=== PATIENT | female | born 1965 | race Asian ===

== ENCOUNTER 2020-05-11 15:39 | Observation (INO) | payer OTHER, SELFPAY ==
[2020-05-11] VITALS (12 sets, daily range): BP systolic 110–127; BP diastolic 63–83; PULSE 85–100; RESP 15–23; TEMP 36.4–37; O2SAT 89–100; BMI 27.7
--- NOTE | 2020-05-11 16:52 | PC.NURSE ---
Patient resting in stretcher with significant other at bedside. Patient denies nausea but c/o feeling dehydrated. Skin is pink,warm and dry. C/O epigastric discomfort. Placed patient on equipment monitor phototypesetting. Labs drawn and sent.
[2020-05-11 16:57] LABS: Add Manual Diff / Slide Review NO; Basophils Absolute Auto 0 /uL (0-100); Basophils Percent Auto 0.8 % (0-2); Eosinophils Absolute Auto 200 /uL (0-450); Eosinophils Percent Auto 2.7 % (2-4); Hematocrit 32.9 % (36-46); Hemoglobin 11.1 g/dL (12.0-16.0); Lymphocytes Absolute Auto 1800 /uL (1100-4500); Lymphocytes Percent Auto 29.9 % (25-40); Mean Corpuscular HGB Conc 33.9 % (30-36); Mean Corpuscular Hemoglobin 29.9 PG (26-34); Mean Corpuscular Volume 88.3 fL (80-100); Monocytes Absolute Auto 400 /uL (0-900); Monocytes Percent Auto 6.1 % (3-14); Neutrophils Absolute Auto 3600 /uL (1500-7000); Neutrophils Percent Auto 60.5 % (50-75); Platelet Count 220 X10^3/uL (150-400); Red Blood Cell Count 3.72 X10^6/uL (4.0-5.2); Red Cell Distribution Width 13.9 % (11.6-14.8)
[2020-05-11 17:02] LABS: INR 1.1 (0.9-1.3); Prothrombin Time 12.5 SECONDS (10.1-12.7)
[2020-05-11 17:05] LABS: PTT Partial Thromboplastin Tim 35 SECONDS (26.4-36.2)
--- NOTE | 2020-05-11 17:07 | PC.NURSE ---
Pt showed picture of bowel movements today, some dark red some bright red blood, fills entire bowel. Pt c/o upper gastric pain, worse with rest. C/o increased belching.
[2020-05-11 17:28] LABS: Alanine Aminotransferase 16 IU/L (<35); Albumin 4.1 g/dL (3.5-5.0); Albumin Globulin Ratio 1.6 (1.0-2.8); Alkaline Phosphatase 51 U/L (38-126); Aspartate Aminotransferase 48 IU/L (14-36); BUN Creatinine Ratio 32.4 (6-22); Bilirubin Total 0.6 mg/dL (0.2-1.3); Blood Urea Nitrogen 24 mg/dL (7-17); Calcium 9.2 mg/dL (8.4-10.2); Carbon Dioxide 27 mmol/L (22-32); Chloride 106 mmol/L (98-107); Estimated Glomerular Filt Rate > 60.0 mL/min (>60); Globulin 2.6 g/dL (1.7-4.1); Glucose 97 mg/dL (70-100); HEMOLYSIS 35 (0-50); Potassium 4.1 mmol/L (3.4-5.1); Sodium 139 mmol/L (137-145); Total Protein 6.7 g/dL (6.3-8.2)
--- NOTE | 2020-05-11 18:21 | DI.CT.S_ITS ---
PROCEDURE: CT ABDOMEN PELVIS W CON INDICATIONS: abd pain, gi bleed TECHNIQUE: After the administration of intravenous contrast, 5 mm thick sections acquired from the diaphragm to the symphysis. 5 mm coronal and sagittal reformats were acquired. For radiation dose reduction, the following was used: automated exposure control, adjustment of mA and/or kV according to patient size. COMPARISON: None. FINDINGS: Image quality: Excellent. ABDOMEN: Lung bases: Lung bases are clear. Heart size is normal. Very small hiatal hernia. Solid organs: Liver is normal in size and enhancement. Gallbladder is unremarkable . Biliary system is non dilated. Pancreas enhances normally. Spleen is normal in size and enhancement. No adrenal nodules. Kidneys demonstrate normal size and enhancement, without hydronephrosis. Small right upper pole renal hypodensity likely representing a cyst. Peritoneum and bowel: Bowel loops demonstrate normal wall thickness and caliber. No free fluid or air. Normal appendix. Scattered colonic diverticula without acute inflammation. Nodes and vessels: No retroperitoneal or mesenteric adenopathy by size criteria. Aorta and inferior vena cava are normal in size. Miscellaneous: No ventral hernias. PELVIS: Genitourinary: Bladder wall thickness is normal. Miscellaneous: No inguinal hernias or adenopathy. Bones: No suspicious bony lesions. No vertebral body compression fractures. IMPRESSION: 1. CT abdomen and pelvis without acute abnormalities. 2. Scattered colonic diverticulosis without acute diverticulitis. 3. Normal appendix. Dictated by: Dilshad Barahona M.D. on 05/11/2020 at 18:08 Approved by: Dilshad Barahona M.D. on 05/11/2020 at 18:14
[2020-05-11 18:38] LABS: Lactate (Lactic Acid) 1.1 mmol/L (0.7-2.1)
[2020-05-11] MEDS: PANTOPRAZOLE 40 MG VIAL IV (18:40)
[2020-05-11] MEDS: SODIUM CHLORIDE 0.9% 1,000 ML 1000 ML IV (18:40)
--- NOTE | 2020-05-11 18:54 | ED_ITS ---
HPI - GI Bleed <TIM Bruce - Last Filed: 05/11/20 20:25> General Chief complaint: GI Bleed Stated complaint: states bleeding ulcer Time Seen by Provider: 05/11/20 17:45 Source: patient Mode of arrival: Ambulatory Limitations: no limitations History of Present Illness HPI Narrative: The patient is a 54-year-old female current vapor with history of gastric versus duodenal ulcer, brain aneurysm that was clipped, and H pylori who presents with a chief complaint of acute GI bleeding. She states she had multiple very bloody bowel movements this morning. She does have a history of an aneurysm, she is not exactly sure where. She did take Aleve last night for generalized body aches. She complains of lightheadedness and dizziness. She presents from her primary care provider's office where she was found to have a heart rate in the 130s. She denies any nausea or vomiting. She does have some epigastric pain. She denies any abdominal surgical history or any abdominal history other than her ulcer and H pylori. She states that she has had jerman bloody bowel movements about 8 times today. Related Data Allergies Allergy/AdvReac Type Severity Reaction Status Date / Time No Known Drug Allergies Allergy Verified 05/11/20 15:56 Review of Systems <TIM Bruce - Last Filed: 05/11/20 20:25> Review of Systems Narrative: GENERAL: Denies chills, fatigue, malaise, fever, sweats. HEENT: Denies sinus pain, ear pain, sore throat, difficulty swallowing, dizziness. RESPIRATORY: Denies dyspnea, cough, wheezing, hemoptysis, sputum. CARDIOVASCULAR: Denies chest pain, palpitations, orthopnea, edema, GASTROINTESTINAL: See HPI : Denies dysuria, frequency, incontinence, hematuria, urinary retention. MUSCULOSKELETAL: denies weakness, joint pain, or bony pain SKIN: Denies rash, skin lesions, or other NEUROLOGIC: Denies weakness, headache, numbness, change in speech, confusion, seizures, incoordination. PSYCHIATRIC: No concerning psychosocial issues. 12 point review of systems is negative except for those stated above Patient History <TIM Bruce - Last Filed: 05/11/20 20:25> Surgical History Status post delivery Status post delivery Status post delivery Status post delivery Family History Child Age: 33 High cholesterol Father Hypertension Stroke Grandfather Hypertension High cholesterol Stroke Grandmother Hypertension Stroke Mother Hypertension High cholesterol Social History household members: significant other Smoking Status: Current every day smoker alcohol intake: never tobacco type: vaping Substance Use Type: does not use Exam <JAX Bruce-BC - Last Filed: 05/11/20 20:25> Narrative Exam Narrative: GENERAL: This is a well-nourished, well-developed patient, in appears fatigued HEAD: Atraumatic. Normocephalic. No temporal or scalp tenderness. EYES: Pupils equal round and reactive. Extraocular motions intact. No scleral icterus. No injection or drainage. Pale conjunctiva noted. ENT: Nose without bleeding, purulent drainage or septal hematoma. Throat without erythema, tonsillar hypertrophy or exudate. Uvula midline. Airway patent. Dry mucous membranes NECK: Trachea midline. No JVD or lymphadenopathy. Supple, nontender, no meningeal signs. CARDIOVASCULAR: Regular rate and rhythm RESPIRATORY: Clear to auscultation. Breath sounds equal bilaterally. No wheezes, rales, or rhonchi. No cough. No increased respiratory effort. No accessory muscle use. GASTROINTESTINAL: Abdomen soft, non-tender, nondistended. No hepato- splenomegaly, or palpable masses. No guarding. Active bowel sounds all 4 quadr ants. EXTREMITIES: No clubbing, cyanosis, or edema. No joint tenderness, effusion, or edema noted. BACK: Nontender without deformity or crepitance. No flank tenderness. NEURO: AOx3. SKIN: No rash or erythema on visible skin. Initial Vital Signs Initial Vital Signs: Vital Signs Temperature 98.6 F 05/11/20 15:57 Pulse Rate 100 H 05/11/20 15:57 Respiratory Rate 18 05/11/20 15:57 Blood Pressure 123/83 05/11/20 15:57 Pulse Oximetry 99 05/11/20 15:57 <Americo Dyer DO - Last Filed: 05/12/20 03:44> Initial Vital Signs Initial Vital Signs: Vital Signs Temperature 98.6 F 05/11/20 15:57 Pulse Rate 100 H 05/11/20 15:57 Respiratory Rate 18 05/11/20 15:57 Blood Pressure 123/83 05/11/20 15:57 Pulse Oximetry 99 05/11/20 15:57 Scores <TIM Bruce - Last Filed: 05/11/20 20:25> GCS [place] coma scale eye opening: Spontaneous Jessica coma scale verbal response: Orientated Jessica coma scale motor response: Obey commands [place] coma scale total score: 15 Course <TIM Bruce - Last Filed: 05/11/20 20:25> Orders Ordered: ED Orders 05/11/20 18:43 COVID19 -ED/INPAT/OR/L&D Stat Lactated Ringer's (Lactated Ringers) 1,000 mls @ 100 mls/hr IV CONT [facility] Last Admin: 05/12/20 00:33 Dose: 100 mls/hr Documented by: MELINDA Magnesium Citrate (Magnesium Citrate) 150 ml PO 2200 [facility] Last Admin: 05/11/20 21:52 Dose: 150 ml Documented by: AISHAI Magnesium Citrate (Magnesium Citrate) 150 ml PO NOW ONE Stop: 05/12/20 05:01 Naloxone HCl (Narcan) 0.2 mg IV Q2MIN PRN PRN Reason: Opiate Reversal Ondansetron HCl (Zofran) 4 mg IV Q8HR PRN PRN Reason: Nausea And Vomiting Pantoprazole Sodium (Protonix) 40 mg IV BID [facility] Sodium Biphosphate/Sodium Phosphate (Fleet Enema) 1 each CO 0600 [facility] Stop: 05/12/20 08:00 Discontinued Medications Sodium Chloride (Normal Saline 0.9%) 1,000 mls @ 1,000 mls/hr IV BOLUS ONE Stop: 05/11/20 19:23 Last Infusion: 05/11/20 20:06 Dose: 0 mls/hr Documented by: Admin: 05/11/20 18:40 Dose: 1,000 mls/hr Documented by: FARHAT Sodium Chloride (Normal Saline 0.9%) 1,000 mls @ 150 mls/hr IV CONT [facility] Last Admin: 05/11/20 20:38 Dose: Not Given Documented by: SHERRIE Sodium Chloride (Normal Saline 0.9%) 1,000 mls @ 150 mls/hr IV CONT [facility] Stop: 05/11/20 23:33 Last Admin: 05/11/20 21:51 Dose: 150 mls/hr Documented by: IFTIKHAR Lorazepam (Ativan) 1 mg IV NOW ONE Stop: 05/11/20 18:27 Last Admin: 05/11/20 20:05 Dose: Not Given Documented by: SHERRIE Naloxone HCl (Narcan) 0.2 mg IV Q2MIN PRN PRN Reason: Opiate Reversal Pantoprazole Sodium (Protonix) 40 mg IV NOW ONE Stop: 05/11/20 18:22 Last Admin: 05/11/20 18:40 Dose: 40 mg Documented by: FARHAT Vital Signs Vital signs: Vital Signs - 8 hr 05/11/20 20:00 05/11/20 20:01 Pulse Rate 89 94 H Respiratory Rate 18 23 Blood Pressure 118/73 Pulse Oximetry 100 100 <Americo Dyer DO - Last Filed: 05/12/20 03:44> Orders Ordered: ED Orders 05/11/20 18:43 COVID19 -ED/INPAT/OR/L&D Stat Lactated Ringer's (Lactated Ringers) 1,000 mls @ 100 mls/hr IV CONT [facility] Last Admin: 05/12/20 00:33 Dose: 100 mls/hr Documented by: MELINDA Magnesium Citrate (Magnesium Citrate) 150 ml PO 2200 [facility] Last Admin: 05/11/20 21:52 Dose: 150 ml Documented by: IFTIKHAR Magnesium Citrate (Magnesium Citrate) 150 ml PO NOW ONE Stop: 05/12/20 05:01 Naloxone HCl (Narcan) 0.2 mg IV Q2MIN PRN PRN Reason: Opiate Reversal Ondansetron HCl (Zofran) 4 mg IV Q8HR PRN PRN Reason: Nausea And Vomiting Pantoprazole Sodium (Protonix) 40 mg IV BID [facility] Sodium Biphosphate/Sodium Phosphate (Fleet Enema) 1 each CO 0600 [facility] Stop: 05/12/20 08:00 Discontinued Medications Sodium Chloride (Normal Saline 0.9%) 1,000 mls @ 1,000 mls/hr IV BOLUS ONE Stop: 05/11/20 19:23 Last Infusion: 05/11/20 20:06 Dose: 0 mls/hr Documented by: Admin: 05/11/20 18:40 Dose: 1,000 mls/hr Documented by: FARHAT Sodium Chloride (Normal Saline 0.9%) 1,000 mls @ 150 mls/hr IV CONT [facility] Last Admin: 05/11/20 20:38 Dose: Not Given Documented by: SHERRIE Sodium Chloride (Normal Saline 0.9%) 1,000 mls @ 150 mls/hr IV CONT [facility] Stop: 05/11/20 23:33 Last Admin: 05/11/20 21:51 Dose: 150 mls/hr Documented by: IFTIKHAR Lorazepam (Ativan) 1 mg IV NOW ONE Stop: 05/11/20 18:27 Last Admin: 05/11/20 20:05 Dose: Not Given Documented by: SHERRIE Naloxone HCl (Narcan) 0.2 mg IV Q2MIN PRN PRN Reason: Opiate Reversal Pantoprazole Sodium (Protonix) 40 mg IV NOW ONE Stop: 05/11/20 18:22 Last Admin: 05/11/20 18:40 Dose: 40 mg Documented by: FARHAT Vital Signs Vital signs: Vital Signs - 8 hr 05/11/20 20:00 05/11/20 20:01 Pulse Rate 89 94 H Respiratory Rate 18 23 Blood Pressure 118/73 Pulse Oximetry 100 100 MDM - GI Bleed <JAX Bruce- - Last Filed: 05/11/20 20:25> Lab Data Attestation: I reviewed the patient's lab results. Result diagrams: 05/11/20 16:40 05/11/20 16:40 Labs: Lab Results 05/11/20 05/11/20 05/11/20 Range/Units 16:40 16:40 16:40 WBC 6.0 (4.5-11.0) X10^3/uL RBC 3.72 L (4.0-5.2) X10^6/uL Hgb 11.1 L (12.0-16.0) g/dL Hct 32.9 L (36-46) % MCV 88.3 (80-100) fL MCH 29.9 (26-34) PG MCHC 33.9 (30-36) % RDW 13.9 (11.6-14.8) % Plt Count 220 (150-400) X10^3/uL Neut % (Auto) 60.5 (50-75) % Lymph % (Auto) 29.9 (25-40) % Rolette % (Auto) 6.1 (3-14) % Eos % (Auto) 2.7 (2-4) % Baso % (Auto) 0.8 (0-2) % Neut # (Auto) 3600 (5991-6210) /uL Lymph # (Auto) 1800 (5731-7400) /uL Rolette # (Auto) 400 (0-900) /uL Eos # (Auto) 200 (0-450) /uL Baso # (Auto) 0 (0-100) /uL PT 12.5 (10.1-12.7) SECONDS INR 1.1 (0.9-1.3) APTT 35 (26.4-36.2) SECONDS Sodium 139 (137-145) mmol/L Potassium 4.1 (3.4-5.1) mmol/L Chloride 106 (98-107) mmol/L Carbon Dioxide 27 (22-32) mmol/L BUN 24 H (7-17) mg/dL Creatinine 0.74 (0.52-1.04) mg/dL Estimated GFR > 60.0 (>60) mL/min BUN/Creatinine Ratio 32.4 H (6-22) Glucose 97 (70-100) mg/dL Lactate (0.7-2.1) mmol/L Calcium 9.2 (8.4-10.2) mg/dL Total Bilirubin 0.6 (0.2-1.3) mg/dL AST 48 H (14-36) IU/L ALT 16 (<35) IU/L Alkaline Phosphatase 51 (38-126) U/L Total Protein 6.7 (6.3-8.2) g/dL Albumin 4.1 (3.5-5.0) g/dL Globulin 2.6 (1.7-4.1) g/dL Albumin/Globulin Ratio 1.6 (1.0-2.8) Stl C. cayetanensis PCR (Not Detect) Stool Rotavirus (PCR) (Not Detect) Stool Adenovirus (PCR) (Not Detect) Stool Astrovirus (PCR) (Not Detect) Stool Cryptosporidium PCR (Not Detect) Stl E.coli Shiga Tox PCR (Not Detect) St Sh/Enteroin Ecoli PCR (Not Detect) Stool E coli O157 PCR (Not Detect) Stl Enterotoxigenic E PCR (Not Detect) Stool EPEC (PCR) (Not Detect) Stl E. histolytica PCR (Not Detect) Stool Giardia Lamblia PCR (Not Detect) Stool Sapovirus (PCR) (Not Detect) Stl P. shigelloides PCR (Not Detect) St Y.enterocolitica PCR (Not Detect) Stool Vibrio (PCR) (Not Detect) Stl Vibrio cholerae PCR (Not Detect) Stl Enteroaggr Ecoli PCR (Not Detect) Stl Norovirus GI/GII PCR (Not Detect) Campylobacter (PCR) (Not Detect) C. difficile Tox (PCR) (Not Detect) COVID-19 PCR (Negative) Salmonella (PCR) (Not Detect) Blood Type Antibody Screen 05/11/20 05/11/20 05/11/20 Range/Units 16:51 17:30 18:20 WBC (4.5-11.0) X10^3/uL RBC (4.0-5.2) X10^6/uL Hgb (12.0-16.0) g/dL Hct (36-46) % MCV (80-100) fL MCH (26-34) PG MCHC (30-36) % RDW (11.6-14.8) % Plt Count (150-400) X10^3/uL Neut % (Auto) (50-75) % Lymph % (Auto) (25-40) % Rolette % (Auto) (3-14) % Eos % (Auto) (2-4) % Baso % (Auto) (0-2) % Neut # (Auto) (2548-3076) /uL Lymph # (Auto) (8590-6205) /uL Rolette # (Auto) (0-900) /uL Eos # (Auto) (0-450) /uL Baso # (Auto) (0-100) /uL PT (10.1-12.7) SECONDS INR (0.9-1.3) APTT (26.4-36.2) SECONDS Sodium (137-145) mmol/L Potassium (3.4-5.1) mmol/L Chloride (98-107) mmol/L Carbon Dioxide (22-32) mmol/L BUN (7-17) mg/dL Creatinine (0.52-1.04) mg/dL Estimated GFR (>60) mL/min BUN/Creatinine Ratio (6-22) Glucose (70-100) mg/dL Lactate 1.1 (0.7-2.1) mmol/L Calcium (8.4-10.2) mg/dL Total Bilirubin (0.2-1.3) mg/dL AST (14-36) IU/L ALT (<35) IU/L Alkaline Phosphatase (38-126) U/L Total Protein (6.3-8.2) g/dL Albumin (3.5-5.0) g/dL Globulin (1.7-4.1) g/dL Albumin/Globulin Ratio (1.0-2.8) Stl C. cayetanensis PCR Not detected (Not Detect) Stool Rotavirus (PCR) Not detected (Not Detect) Stool Adenovirus (PCR) Not detected (Not Detect) Stool Astrovirus (PCR) Not detected (Not Detect) Stool Cryptosporidium PCR Not detected (Not Detect) Stl E.coli Shiga Tox PCR Not detected (Not Detect) St Sh/Enteroin Ecoli PCR Not detected (Not Detect) Stool E coli O157 PCR Not detected (Not Detect) Stl Enterotoxigenic E PCR Not detected (Not Detect) Stool EPEC (PCR) Not detected (Not Detect) Stl E. histolytica PCR Not detected (Not Detect) Stool Giardia Lamblia PCR Not detected (Not Detect) Stool Sapovirus (PCR) Not detected (Not Detect) Stl P. shigelloides PCR Not detected (Not Detect) St Y.enterocolitica PCR Not detected (Not Detect) Stool Vibrio (PCR) Not detected (Not Detect) Stl Vibrio cholerae PCR Not detected (Not Detect) Stl Enteroaggr Ecoli PCR Not detected (Not Detect) Stl Norovirus GI/GII PCR Not detected (Not Detect) Campylobacter (PCR) Not detected (Not Detect) C. difficile Tox (PCR) Not detected (Not Detect) COVID-19 PCR (Negative) Salmonella (PCR) Not detected (Not Detect) Blood Type O Positive Antibody Screen Negative 05/11/20 Range/Units 18:43 WBC (4.5-11.0) X10^3/uL RBC (4.0-5.2) X10^6/uL Hgb (12.0-16.0) g/dL Hct (36-46) % MCV (80-100) fL MCH (26-34) PG MCHC (30-36) % RDW (11.6-14.8) % Plt Count (150-400) X10^3/uL Neut % (Auto) (50-75) % Lymph % (Auto) (25-40) % Rolette % (Auto) (3-14) % Eos % (Auto) (2-4) % Baso % (Auto) (0-2) % Neut # (Auto) (3144-7716) /uL Lymph # (Auto) (0212-8315) /uL Rolette # (Auto) (0-900) /uL Eos # (Auto) (0-450) /uL Baso # (Auto) (0-100) /uL PT (10.1-12.7) SECONDS INR (0.9-1.3) APTT (26.4-36.2) SECONDS Sodium (137-145) mmol/L Potassium (3.4-5.1) mmol/L Chloride (98-107) mmol/L Carbon Dioxide (22-32) mmol/L BUN (7-17) mg/dL Creatinine (0.52-1.04) mg/dL Estimated GFR (>60) mL/min BUN/Creatinine Ratio (6-22) Glucose (70-100) mg/dL Lactate (0.7-2.1) mmol/L Calcium (8.4-10.2) mg/dL Total Bilirubin (0.2-1.3) mg/dL AST (14-36) IU/L ALT (<35) IU/L Alkaline Phosphatase (38-126) U/L Total Protein (6.3-8.2) g/dL Albumin (3.5-5.0) g/dL Globulin (1.7-4.1) g/dL Albumin/Globulin Ratio (1.0-2.8) Stl C. cayetanensis PCR (Not Detect) Stool Rotavirus (PCR) (Not Detect) Stool Adenovirus (PCR) (Not Detect) Stool Astrovirus (PCR) (Not Detect) Stool Cryptosporidium PCR (Not Detect) Stl E.coli Shiga Tox PCR (Not Detect) St Sh/Enteroin Ecoli PCR (Not Detect) Stool E coli O157 PCR (Not Detect) Stl Enterotoxigenic E PCR (Not Detect) Stool EPEC (PCR) (Not Detect) Stl E. histolytica PCR (Not Detect) Stool Giardia Lamblia PCR (Not Detect) Stool Sapovirus (PCR) (Not Detect) Stl P. shigelloides PCR (Not Detect) St Y.enterocolitica PCR (Not Detect) Stool Vibrio (PCR) (Not Detect) Stl Vibrio cholerae PCR (Not Detect) Stl Enteroaggr Ecoli PCR (Not Detect) Stl Norovirus GI/GII PCR (Not Detect) Campylobacter (PCR) (Not Detect) C. difficile Tox (PCR) (Not Detect) COVID-19 PCR Negative (Negative) Salmonella (PCR) (Not Detect) Blood Type Antibody Screen Point of Care Testing Test Results Negative Urine Dip Bedside Urine Glucose Negative Bedside Urine Bilirubin - Negative Bedside Urine Ketone - Negative Urine Specific [place] 1.020 Bedside Urine Occult Blood - Negative Bedside Urine pH 6.0 Bedside Urine Protein - Negative Bedside Urine Urobilinogen - Negative Bedside Urine Nitrite - Negative Bedside Urine Leukocytes - Negative Esterase Imaging Data CT scan - abdomen/pelvis: Radiologist's Impression: [address] [place] [address] CT Scan Report Signed Patient: Lisset Sims#: [id number] : 1965Acct:[id number] Age/Sex: 54 / FDate of Service: 05/11/20 Loc: ED Accession Number: [id number] Procedure: CT abdomen pelvis w con Ordering Provider: Mayr Escobedo [facility]- PROCEDURE: CT ABDOMEN PELVIS W CON INDICATIONS: abd pain, gi bleed TECHNIQUE: After the administration of intravenous contrast, 5 mm thick sections acquired from the diaphragm to the symphysis. 5 mm coronal and sagittal reformats were acquired. For radiation dose reduction, the following was used: automated exposure control, adjustment of mA and/or kV according to patient size. COMPARISON: None. FINDINGS: Image quality: Excellent. ABDOMEN: Lung bases: Lung bases are clear. Heart size is normal. Very small hiatal hernia. Solid organs: Liver is normal in size and enhancement. Gallbladder is unremarkable . Biliary system is non dilated. Pancreas enhances normally. Spleen is normal in size and enhancement. No adrenal nodules. Kidneys demonstrate normal size and enhancement, without hydronephrosis. Small right upper pole renal hypodensity likely representing a cyst. Peritoneum and bowel: Bowel loops demonstrate normal wall thickness and caliber. No free fluid or air. Normal appendix. Scattered colonic diverticula without acu te inflammation. Nodes and vessels: No retroperitoneal or mesenteric adenopathy by size criteria. Aorta and inferior vena cava are normal in size. Miscellaneous: No ventral hernias. PELVIS: Genitourinary: Bladder wall thickness is normal. Miscellaneous: No inguinal hernias or adenopathy. Bones: No suspicious bony lesions. No vertebral body compression fractures. IMPRESSION: 1. CT abdomen and pelvis without acute abnormalities. 2. Scattered colonic diverticulosis without acute diverticulitis. 3. Normal appendix. Dictated by: Dilshad Barahona M.D. on 05/11/2020 at 18:08 Approved by: Dilshad Barahona M.D. on 05/11/2020 at 18:14 MDM Narrative Medical decision making narrative: The patient is a 54-year-old female who presents with a chief complaint of bright red blood per rectum and bloody bowel movements. She has a history of a gastric ulcer, and used NSAIDs yesterday. The patient is hemodynamically stable, though lightheaded and dizzy. I spoke with Dr. Machuca, the surgeon on-call who is happy to consult on the patient and scope her tomorrow. I spoke with Corky LLOYD who is happy to accept the patient for further care. The patient is agreeable to admission. GI panel negative, COVID negative. She has been him only stable throughout her stay in the ER. <Americo Dyer, DO - Last Filed: 05/12/20 03:44> Lab Data Labs: Lab Results 05/11/20 05/11/20 05/11/20 Range/Units 16:40 16:40 16:40 WBC 6.0 (4.5-11.0) X10^3/uL RBC 3.72 L (4.0-5.2) X10^6/uL Hgb 11.1 L (12.0-16.0) g/dL Hct 32.9 L (36-46) % MCV 88.3 (80-100) fL MCH 29.9 (26-34) PG MCHC 33.9 (30-36) % RDW 13.9 (11.6-14.8) % Plt Count 220 (150-400) X10^3/uL Neut % (Auto) 60.5 (50-75) % Lymph % (Auto) 29.9 (25-40) % Rolette % (Auto) 6.1 (3-14) % Eos % (Auto) 2.7 (2-4) % Baso % (Auto) 0.8 (0-2) % Neut # (Auto) 3600 (6816-0175) /uL Lymph # (Auto) 1800 (0675-4169) /uL Rolette # (Auto) 400 (0-900) /uL Eos # (Auto) 200 (0-450) /uL Baso # (Auto) 0 (0-100) /uL PT 12.5 (10.1-12.7) SECONDS INR 1.1 (0.9-1.3) APTT 35 (26.4-36.2) SECONDS Sodium 139 (137-145) mmol/L Potassium 4.1 (3.4-5.1) mmol/L Chloride 106 (98-107) mmol/L Carbon Dioxide 27 (22-32) mmol/L BUN 24 H (7-17) mg/dL Creatinine 0.74 (0.52-1.04) mg/dL Estimated GFR > 60.0 (>60) mL/min BUN/Creatinine Ratio 32.4 H (6-22) Glucose 97 (70-100) mg/dL Lactate (0.7-2.1) mmol/L Calcium 9.2 (8.4-10.2) mg/dL Total Bilirubin 0.6 (0.2-1.3) mg/dL AST 48 H (14-36) IU/L ALT 16 (<35) IU/L Alkaline Phosphatase 51 (38-126) U/L Total Protein 6.7 (6.3-8.2) g/dL Albumin 4.1 (3.5-5.0) g/dL Globulin 2.6 (1.7-4.1) g/dL Albumin/Globulin Ratio 1.6 (1.0-2.8) Stl C. cayetanensis PCR (Not Detect) Stool Rotavirus (PCR) (Not Detect) Stool Adenovirus (PCR) (Not Detect) Stool Astrovirus (PCR) (Not Detect) Stool Cryptosporidium PCR (Not Detect) Stl E.coli Shiga Tox PCR (Not Detect) St Sh/Enteroin Ecoli PCR (Not Detect) Stool E coli O157 PCR (Not Detect) Stl Enterotoxigenic E PCR (Not Detect) Stool EPEC (PCR) (Not Detect) Stl E. histolytica PCR (Not Detect) Stool Giardia Lamblia PCR (Not Detect) Stool Sapovirus (PCR) (Not Detect) Stl P. shigelloides PCR (Not Detect) St Y.enterocolitica PCR (Not Detect) Stool Vibrio (PCR) (Not Detect) Stl Vibrio cholerae PCR (Not Detect) Stl Enteroaggr Ecoli PCR (Not Detect) Stl Norovirus GI/GII PCR (Not Detect) Campylobacter (PCR) (Not Detect) C. difficile Tox (PCR) (Not Detect) COVID-19 PCR (Negative) Salmonella (PCR) (Not Detect) Blood Type Antibody Screen 05/11/20 05/11/20 05/11/20 Range/Units 16:51 17:30 18:20 WBC (4.5-11.0) X10^3/uL RBC (4.0-5.2) X10^6/uL Hgb (12.0-16.0) g/dL Hct (36-46) % MCV (80-100) fL MCH (26-34) PG MCHC (30-36) % RDW (11.6-14.8) % Plt Count (150-400) X10^3/uL Neut % (Auto) (50-75) % Lymph % (Auto) (25-40) % Rolette % (Auto) (3-14) % Eos % (Auto) (2-4) % Baso % (Auto) (0-2) % Neut # (Auto) (7965-3417) /uL Lymph # (Auto) (5281-8530) /uL Rolette # (Auto) (0-900) /uL Eos # (Auto) (0-450) /uL Baso # (Auto) (0-100) /uL PT (10.1-12.7) SECONDS INR (0.9-1.3) APTT (26.4-36.2) SECONDS Sodium (137-145) mmol/L Potassium (3.4-5.1) mmol/L Chloride (98-107) mmol/L Carbon Dioxide (22-32) mmol/L BUN (7-17) mg/dL Creatinine (0.52-1.04) mg/dL Estimated GFR (>60) mL/min BUN/Creatinine Ratio (6-22) Glucose (70-100) mg/dL Lactate 1.1 (0.7-2.1) mmol/L Calcium (8.4-10.2) mg/dL Total Bilirubin (0.2-1.3) mg/dL AST (14-36) IU/L ALT (<35) IU/L Alkaline Phosphatase (38-126) U/L Total Protein (6.3-8.2) g/dL Albumin (3.5-5.0) g/dL Globulin (1.7-4.1) g/dL Albumin/Globulin Ratio (1.0-2.8) Stl C. cayetanensis PCR Not detected (Not Detect) Stool Rotavirus (PCR) Not detected (Not Detect) Stool Adenovirus (PCR) Not detected (Not Detect) Stool Astrovirus (PCR) Not detected (Not Detect) Stool Cryptosporidium PCR Not detected (Not Detect) Stl E.coli Shiga Tox PCR Not detected (Not Detect) St Sh/Enteroin Ecoli PCR Not detected (Not Detect) Stool E coli O157 PCR Not detected (Not Detect) Stl Enterotoxigenic E PCR Not detected (Not Detect) Stool EPEC (PCR) Not detected (Not Detect) Stl E. histolytica PCR Not detected (Not Detect) Stool Giardia Lamblia PCR Not detected (Not Detect) Stool Sapovirus (PCR) Not detected (Not Detect) Stl P. shigelloides PCR Not detected (Not Detect) St Y.enterocolitica PCR Not detected (Not Detect) Stool Vibrio (PCR) Not detected (Not Detect) Stl Vibrio cholerae PCR Not detected (Not Detect) Stl Enteroaggr Ecoli PCR Not detected (Not Detect) Stl Norovirus GI/GII PCR Not detected (Not Detect) Campylobacter (PCR) Not detected (Not Detect) C. difficile Tox (PCR) Not detected (Not Detect) COVID-19 PCR (Negative) Salmonella (PCR) Not detected (Not Detect) Blood Type O Positive Antibody Screen Negative 05/11/20 Range/Units 18:43 WBC (4.5-11.0) X10^3/uL RBC (4.0-5.2) X10^6/uL Hgb (12.0-16.0) g/dL Hct (36-46) % MCV (80-100) fL MCH (26-34) PG MCHC (30-36) % RDW (11.6-14.8) % Plt Count (150-400) X10^3/uL Neut % (Auto) (50-75) % Lymph % (Auto) (25-40) % Rolette % (Auto) (3-14) % Eos % (Auto) (2-4) % Baso % (Auto) (0-2) % Neut # (Auto) (3755-9194) /uL Lymph # (Auto) (2618-6531) /uL Rolette # (Auto) (0-900) /uL Eos # (Auto) (0-450) /uL Baso # (Auto) (0-100) /uL PT (10.1-12.7) SECONDS INR (0.9-1.3) APTT (26.4-36.2) SECONDS Sodium (137-145) mmol/L Potassium (3.4-5.1) mmol/L Chloride (98-107) mmol/L Carbon Dioxide (22-32) mmol/L BUN (7-17) mg/dL Creatinine (0.52-1.04) mg/dL Estimated GFR (>60) mL/min BUN/Creatinine Ratio (6-22) Glucose (70-100) mg/dL Lactate (0.7-2.1) mmol/L Calcium (8.4-10.2) mg/dL Total Bilirubin (0.2-1.3) mg/dL AST (14-36) IU/L ALT (<35) IU/L Alkaline Phosphatase (38-126) U/L Total Protein (6.3-8.2) g/dL Albumin (3.5-5.0) g/dL Globulin (1.7-4.1) g/dL Albumin/Globulin Ratio (1.0-2.8) Stl C. cayetanensis PCR (Not Detect) Stool Rotavirus (PCR) (Not Detect) Stool Adenovirus (PCR) (Not Detect) Stool Astrovirus (PCR) (Not Detect) Stool Cryptosporidium PCR (Not Detect) Stl E.coli Shiga Tox PCR (Not Detect) St Sh/Enteroin Ecoli PCR (Not Detect) Stool E coli O157 PCR (Not Detect) Stl Enterotoxigenic E PCR (Not Detect) Stool EPEC (PCR) (Not Detect) Stl E. histolytica PCR (Not Detect) Stool Giardia Lamblia PCR (Not Detect) Stool Sapovirus (PCR) (Not Detect) Stl P. shigelloides PCR (Not Detect) St Y.enterocolitica PCR (Not Detect) Stool Vibrio (PCR) (Not Detect) Stl Vibrio cholerae PCR (Not Detect) Stl Enteroaggr Ecoli PCR (Not Detect) Stl Norovirus GI/GII PCR (Not Detect) Campylobacter (PCR) (Not Detect) C. difficile Tox (PCR) (Not Detect) COVID-19 PCR Negative (Negative) Salmonella (PCR) (Not Detect) Blood Type Antibody Screen Point of Care Testing Test Results Negative Urine Dip Bedside Urine Glucose Negative Bedside Urine Bilirubin - Negative Bedside Urine Ketone - Negative Urine Specific [place] 1.020 Bedside Urine Occult Blood - Negative Bedside Urine pH 6.0 Bedside Urine Protein - Negative Bedside Urine Urobilinogen - Negative Bedside Urine Nitrite - Negative Bedside Urine Leukocytes - Negative Esterase Discharge Plan Departure Patient Disposition: Admitted as Observation Clinical Impression: GI bleed Qualifiers: GI bleed type/associated pathology: unspecified gastrointestinal hemorrhage type Qualified Code(s): K92.2 - Gastrointestinal hemorrhage, unspecified Discharge Date/Time: 05/11/20 21:00 Admit Date/Time: 05/11/20 20:23 Admit Provider: Adalberto Fried <Americo Dyer DO - Last Filed: 05/12/20 03:44> Cosign ED Attending Cosignature Attestation: I was immediately available in the department for consultation. This doc umentation has been reviewed and I agree with assessment and plan. Supervised by Americo Dyer DO
[2020-05-11 19:01] LABS: COVID19 -Nasal RAPID Negative (Negative)
[2020-05-11 19:21] LABS: Adenovirus F 40/41 Not Detected (Not Detect); Astrovirus Not Detected (Not Detect); Campylobacter Not Detected (Not Detect); Clostridium difficile toxin AB Not Detected (Not Detect); Cryptosporidium Not Detected (Not Detect); Cyclospora cayetanensis Not Detected (Not Detect); Entamoeba histolytica Not Detected (Not Detect); Enteroaggregative E.coli Not Detected (Not Detect); Enteropathogenic E.coli Not Detected (Not Detect); Enterotoxigenic E.coli It/st Not Detected (Not Detect); Giardia lamblia Not Detected (Not Detect); Norovirus GI/GII Not Detected (Not Detect); Plesiomonsa shigelloides Not Detected (Not Detect); Rotavirus A Not Detected (Not Detect); Salmonella Not Detected (Not Detect); Sapovirus Not Detected (Not Detect); Shiga-like toxin-prod E.coli Not Detected (Not Detect); Shigella/Enteroinvasive E.coli Not Detected (Not Detect); Vibrio Not Detected (Not Detect); Vibrio cholerae Not Detected (Not Detect); Yersinia enterocolitica Not Detected (Not Detect)
--- NOTE | 2020-05-11 20:06 | PC.NURSE ---
Surgeon in speaking with pt
--- NOTE | 2020-05-11 20:18 | PM.CN ---
History of Present Illness Consult details Date Patient Seen: 05/11/20 Time Patient Seen: 20:09 Chief complaint: states bleeding ulcer Requesting provider: Mary Escobedo Narrative: The patient is a woman who today developed red blood per rectum. She has never had this before. She started taking nonsteroidal anti-inflammatory agent recently and believes that may have set this off. She has a history of ulcers but the stool or has not really been black. It has been dark red to bright red. (Patient showed pictures). She had some vague upper abdominal discomfort for review of days and has been taking pantoprazole for the last 6. She has not done any vomiting. She does not use alcohol. Last p.o. solids were around lunchtime. Had some water on her way here. Meds Home Medications and Allergies Allergies Allergy/AdvReac Type Severity Reaction Status Date / Time No Known Drug Allergies Allergy Verified 05/11/20 15:56 Review of Systems Review of Systems Narrative: Patient denies visual difficulties double vision pain arise earaches or sore throat. No cough cold or asthma. No heart problems or chest pain. No prior black or bloody bowel movements. No seizures or blackouts. No anxiety or depression. Does not normally have any unusual bruising or bleeding. Exam Vital Signs (past 8 hours): - 05/11/20 15:57 05/11/20 16:48 05/11/20 18:11 Temperature 98.6 F Pulse Rate 100 H 89 92 H Respiratory Rate 18 16 18 Blood Pressure 123/83 123/80 110/83 Pulse Oximetry 99 96 96 05/11/20 18:12 05/11/20 18:37 05/11/20 19:00 Temperature Pulse Rate 91 H 91 H Respiratory Rate 16 15 Blood Pressure 110/63 Pulse Oximetry 98 89 L 100 05/11/20 19:30 05/11/20 19:40 05/11/20 20:00 Temperature Pulse Rate 92 H 88 89 Respiratory Rate 19 17 18 Blood Pressure 114/68 Pulse Oximetry 100 100 100 05/11/20 20:01 Temperature Pulse Rate 94 H Respiratory Rate 23 Blood Pressure 118/73 Pulse Oximetry 100 Oxygen Delivery Method Room Air Narrative Exam Narrative: Vital signs noted. Cooperative in no apparent distress. Conjunctivae a little pale. Sclera white. Pupils equal round reactive to light. There are no nodes in the neck or supraclavicular areas. Trachea is midline mobile. Thyroid is not enlarged. Lungs are clear to auscultation without rales or rhonchi. Equal percussion. Heart regular rate and rhythm without murmur gallop. Has no bruit in the neck. Abdomen is flat soft nontender. No guarding. No palpable masses. No hernias appreciated. Pedal pulses 2+ tibialis posterior and dorsalis pedis. Objective Imaging CT scan - abdomen: My impression: Further normal exam. Patient does have diverticulosis of the colon. The does not appear to be a great deal of contents in the stomach. Labs Result Diagrams: 05/11/20 16:40 05/11/20 16:40 Labs: Laboratory Results - last 24 hr 05/11/20 05/11/20 05/11/20 16:40 16:40 16:40 WBC 6.0 RBC 3.72 L Hgb 11.1 L Hct 32.9 L MCV 88.3 MCH 29.9 MCHC 33.9 RDW 13.9 Plt Count 220 Neut % (Auto) 60.5 Lymph % (Auto) 29.9 Mcminn % (Auto) 6.1 Eos % (Auto) 2.7 Baso % (Auto) 0.8 Neut # (Auto) 3600 Lymph # (Auto) 1800 Mcminn # (Auto) 400 Eos # (Auto) 200 Baso # (Auto) 0 PT 12.5 INR 1.1 APTT 35 Sodium 139 Potassium 4.1 Chloride 106 Carbon Dioxide 27 BUN 24 H Creatinine 0.74 Estimated GFR > 60.0 BUN/Creatinine Ratio 32.4 H Glucose 97 Lactate Calcium 9.2 Total Bilirubin 0.6 AST 48 H ALT 16 Alkaline Phosphatase 51 Total Protein 6.7 Albumin 4.1 Globulin 2.6 Albumin/Globulin Ratio 1.6 Stl C. cayetanensis PCR Stool Rotavirus (PCR) Stool Adenovirus (PCR) Stool Astrovirus (PCR) Stool Cryptosporidium PCR Stl E.coli Shiga Tox PCR St Sh/Enteroin Ecoli PCR Stool E coli O157 PCR Stl Enterotoxigenic E PCR Stool EPEC (PCR) Stl E. histolytica PCR Stool Giardia Lamblia PCR Stool Sapovirus (PCR) Stl P. shigelloides PCR St Y.enterocolitica PCR Stool Vibrio (PCR) Stl Vibrio cholerae PCR Stl Enteroaggr Ecoli PCR Stl Norovirus GI/GII PCR Campylobacter (PCR) C. difficile Tox (PCR) COVID-19 PCR Salmonella (PCR) 05/11/20 05/11/20 05/11/20 17:30 18:20 18:43 WBC RBC Hgb Hct MCV MCH MCHC RDW Plt Count Neut % (Auto) Lymph % (Auto) Mcminn % (Auto) Eos % (Auto) Baso % (Auto) Neut # (Auto) Lymph # (Auto) Mcminn # (Auto) Eos # (Auto) Baso # (Auto) PT INR APTT Sodium Potassium Chloride Carbon Dioxide BUN Creatinine Estimated GFR BUN/Creatinine Ratio Glucose Lactate 1.1 Calcium Total Bilirubin AST ALT Alkaline Phosphatase Total Protein Albumin Globulin Albumin/Globulin Ratio Stl C. cayetanensis PCR Not detected Stool Rotavirus (PCR) Not detected Stool Adenovirus (PCR) Not detected Stool Astrovirus (PCR) Not detected Stool Cryptosporidium PCR Not detected Stl E.coli Shiga Tox PCR Not detected St Sh/Enteroin Ecoli PCR Not detected Stool E coli O157 PCR Not detected Stl Enterotoxigenic E PCR Not detected Stool EPEC (PCR) Not detected Stl E. histolytica PCR Not detected Stool Giardia Lamblia PCR Not detected Stool Sapovirus (PCR) Not detected Stl P. shigelloides PCR Not detected St Y.enterocolitica PCR Not detected Stool Vibrio (PCR) Not detected Stl Vibrio cholerae PCR Not detected Stl Enteroaggr Ecoli PCR Not detected Stl Norovirus GI/GII PCR Not detected Campylobacter (PCR) Not detected C. difficile Tox (PCR) Not detected COVID-19 PCR Negative Salmonella (PCR) Not detected Assessment & Plan Assessment & Plan narrative: Patient with a probable lower GI bleed. She has never had a colonoscopy. Given the amount of bleeding this may well be diverticular. According to her she has had very little blood loss since she arrived. It is likely that she has pretty much cleared her GI tract of contents. Will give her limited bowel prep in proceed to an EGD and colonoscopy tomorrow morning. She understands that Dr. Narayanan may be doing the operation. I have discussed the procedure and the rationale with the patient including risks of bleeding, perforation which would necessitate a major operation, failure to find remove all lesions and the potential to tattoo. She appeared to understand and wished to proceed.
--- NOTE | 2020-05-11 21:44 | PC.NURSE ---
Pt arrived to floor alert/oriented Denies any discomfort at this time. IVF infusing into LAC via pump w/o incidence. Pt will be NPO at [place] Call light w/in reach, pt calls appropriately for needs.
[2020-05-11] MEDS: SODIUM CHLORIDE 0.9% 1,000 ML 150 ML IV (21:51)
[2020-05-11] MEDS: MAGNESIUM CITRATE 300 ML SOLUTION 150 ML PO (21:52)
[2020-05-12] VITALS (14 sets, daily range): BP systolic 100–129; BP diastolic 69–87; PULSE 76–88; RESP 12–16; TEMP 35.9–36.9; O2SAT 96–100; BMI 27.8
--- NOTE | 2020-05-12 | PATH_ITS ---
[facility] Accession Number: [id number] . 01 Material submitted: . PART A: gastrointestinal site - GASTRIC BIOPSY PART B: esophagus, E-G Junction - GE JUNCTION . 01 Clinical history: . STATES BLEEDING ULCER . 02 Diagnosis: A. Stomach, Biopsy: Body type mucosa with mild chronic gastritis. Negative for Helicobacter by immunohistochemistry. Negative for intestinal metaplasia. Negative for dysplasia and malignancy. . B. Gastroesophageal Junction, Biopsy: Squamous epithelium with no diagnostic abnormality. Intraepithelial eosinophils are not increased. Negative for dysplasia and malignancy. [facility] 05/17/2020 1558 Local . 02 Electronically signed: . Hoa Thomas MD, Pathologist NPI- [id number] . 01 Gross description: . A. The specimen is received in formalin, labeled gastric, and consists of two blanco fragments of soft tissue measuring 0.5 x 0.4 x 0.2 cm in aggregate. The specimen is entirely submitted in cassette A1. B. The specimen is received in formalin, labeled GE junction, and consists of a 0.2 x 0.2 x 0.2 cm blanco fragment of soft tissue which is entirely submitted in cassette B1. ([id number]) /[facility] 05/13/2020 1406 Local . 02 Microscopic: . A. An immunohistochemical stain was performed to evaluate for Helicobacter organisms and is negative. The control stain showed appropriate reactivity. . * This test was developed and its performance characteristics determined by [facility] [employer]. It has not been cleared or approved by the U.S. Food and Drug Administration. The FDA has determined that such clearance or approval is not necessary. This test is used for clinical purposes. It should not be regarded as investigational or for research. . 02 Pathologist provided ICD-10: R10.9 . 02 CPT . 425939, 925229, T53078 Performed at: 01 [facility] [address] [id number] MD Eliceo Alvarez MD Phone: [phone] Performed at: [facility] [address] [place], [place] [id number] MD Hoa Thomas MD Phone: [phone]
[2020-05-12] MEDS: LACTATED RINGERS 1,000 ML 100 ML IV (00:33)
--- NOTE | 2020-05-12 03:24 | PM.HP.1 ---
History of Present Illness History of Present Illness Date Patient Seen: 05/11/20 Time Patient Seen: 23:00 Chief complaint: states bleeding ulcer Narrative: Ms. Lucy Sims is a 54-year-old filipina female with past medical history significant for prior gastric ulcer, GERD, H pylori infection, irregular menstruation and headaches who presents to the ER with complaints of bloody diarrhea. The patient states that yesterday she took 2 Aleve at night for generalized aches and pains and feeling weak tired after long day at work. When the patient woke in the morning she had episode of dark red diarrhea stool. The patient proceeded to go to work and continue to have multiple episodes of bloody diarrhea and after 5 BMs became lightheaded and weak. She describes associated epigastric tenderness but denies normal pain or cramping. She has no reports of nausea vomiting and no hematemesis. Patient had H pylori infection 7 years ago that was treated with antibiotics and a previous gastric ulcer. She also reports history of GERD for which she takes of pantoprazole on an irregular basis. She has never had a colonoscopy. She reports no recent complaints of illness, fevers or chills. She has no complaints of chest pain or palpitations, shortness of breath cough or wheezing. She has epigastric tenderness but denies abdominal pain and has no cramping or flank pain. She denies urinary symptoms of urgency frequency or hematuria. On arrival to the ER the patient has a temperature 98.6?, heart rate of 100, blood pressure 123/83, respirations of 18 saturating 99% on room air. A CT the abdomen and pelvis finds no acute abnormalities, nodes scattered colonic diverticulosis without acute diverticulitis and normal appendix. On laboratory analysis the patient has a normal white count at 6.0 with no shift, hemoglobin of 11.1, hematocrit of 32.9 and platelets of 220. She has PT of 0.5, INR 1.1 and PTT of 35. Electrolytes are all within normal limits and has a BUN 24 and a creatinine 0.74. Her nonfasting glucose is 97. She has a total bilirubin of 0.6, AST 48, ALT of 16 and alkaline phosphatase of 55. Her albumin is 4.1. GI PCR panel is negative and COVID screening is negative. Dr. Narayanan is contacted through the emergency department and agrees to consult. The patient is admitted to the medicine service for GI bleeding. Patient History Medical History Gastric ulcer (Acute) GERD (gastroesophageal reflux disease) (Acute) Headache (Acute) History of cerebral aneurysm (Acute) History of Helicobacter pylori infection (Acute) Irregular menstruation (Inactive) Surgical History History of surgery for cerebral aneurysm (Acute) Status post delivery Status post delivery Status post delivery Status post delivery Family & Social History Family History Child Age: 33 High cholesterol Father Hypertension Stroke Grandfather Hypertension High cholesterol Stroke Grandmother Hypertension Stroke Mother Hypertension High cholesterol Social History: household members significant other Safety & Behavioral: Feels Safe in Current Yes Environment Been Physically Hurt or No Threatened By a Person Suicidal Ideation Description None Suicide Plan Description No Plan Tobacco & Substance use: Tobacco type e-cigarettes Smoking Status Current every day smoker alcohol intake never Substance Use Type does not use Meds Home Medications and Allergies Home Medications Medication Instructions Recorded Confirmed Type pantoprazole 20 mg PO DAILY 05/12/20 05/12/20 History Allergies Allergy/AdvReac Type Severity Reaction Status Date / Time No Known Drug Allergies Allergy Verified 05/11/20 15:56 Review of Systems Review of Systems ROS: Yes All systems reviewed with the patient and are negative except as otherwise documented Exam Vital Signs (past 8 hours): - 05/11/20 19:30 05/11/20 19:40 05/11/20 20:00 Temperature Pulse Rate 92 H 88 89 Respiratory Rate 19 17 18 Blood Pressure 114/68 Pulse Oximetry 100 100 100 05/11/20 20:01 05/11/20 21:17 05/11/20 23:34 Temperature 97.6 F Pulse Rate 94 H 85 Respiratory Rate 23 18 Blood Pressure 118/73 127/77 Pulse Oximetry 100 100 96 05/12/20 00:40 05/12/20 01:00 Temperature 96.7 F L Pulse Rate 80 80 Respiratory Rate 16 Blood Pressure 115/72 109/71 Pulse Oximetry 99 96 Oxygen Delivery Method Room Air Narrative Exam Narrative: GENERAL APPEARANCE: well developed, well nourished, in no acute distress. HEENT: Normocephalic, PERRLA, conjunctiva clear, EOMs intact without nystagmus, no rhinorrhea, mucous membranes are moist and pink without lesions or exudate. NECK/THYROID: neck supple, no JVD, no thyromegaly, trachea midline. LYMPH NODES: no cervical or supraclavicular lymphadenopathy. SKIN: [place], warm and dry, no visible lesions, rashes, ulcerations or petechiae. HEART: regular rate and rhythm, S1-S2, no murmur, no rubs or gallops, brisk capillary refill, no edema LUNGS: clear to auscultation bilaterally, no coarseness crackles or wheezing, no cough present CHEST: Symmetrical movement, no accessory muscle use, good tidal volume. ABDOMEN: Soft, no distention, no epigastric or abdominal tenderness on palpation, or organomegaly, no flank or suprapubic tenderness, hyperactive bowel tones. BACK: Normal curvature, nontender to palpation, no CVA tenderness on percussion EXTREMITIES: moves all extremities, strength is 5/5 and symmetrical, no deformities or joint effusions. NEUROLOGIC: AAO x4, no focal neurologic deficits, cranial nerves II-XII grossly intact, sensation intact to light touch, hearing grossly normal to speech. PSYCH: Good eye contact, pleasant and cooperative, appropriate affect stable behavior. Objective Labs Result Diagrams: 05/11/20 16:40 05/11/20 16:40 Labs: Laboratory Results - last 24 hr 05/11/20 05/11/20 05/11/20 16:40 16:40 16:40 WBC 6.0 RBC 3.72 L Hgb 11.1 L Hct 32.9 L MCV 88.3 MCH 29.9 MCHC 33.9 RDW 13.9 Plt Count 220 Neut % (Auto) 60.5 Lymph % (Auto) 29.9 Woodson % (Auto) 6.1 Eos % (Auto) 2.7 Baso % (Auto) 0.8 Neut # (Auto) 3600 Lymph # (Auto) 1800 Woodson # (Auto) 400 Eos # (Auto) 200 Baso # (Auto) 0 PT 12.5 INR 1.1 APTT 35 Sodium 139 Potassium 4.1 Chloride 106 Carbon Dioxide 27 BUN 24 H Creatinine 0.74 Estimated GFR > 60.0 BUN/Creatinine Ratio 32.4 H Glucose 97 Lactate Calcium 9.2 Total Bilirubin 0.6 AST 48 H ALT 16 Alkaline Phosphatase 51 Total Protein 6.7 Albumin 4.1 Globulin 2.6 Albumin/Globulin Ratio 1.6 Stl C. cayetanensis PCR Stool Rotavirus (PCR) Stool Adenovirus (PCR) Stool Astrovirus (PCR) Stool Cryptosporidium PCR Stl E.coli Shiga Tox PCR St Sh/Enteroin Ecoli PCR Stool E coli O157 PCR Stl Enterotoxigenic E PCR Stool EPEC (PCR) Stl E. histolytica PCR Stool Giardia Lamblia PCR Stool Sapovirus (PCR) Stl P. shigelloides PCR St Y.enterocolitica PCR Stool Vibrio (PCR) Stl Vibrio cholerae PCR Stl Enteroaggr Ecoli PCR Stl Norovirus GI/GII PCR Campylobacter (PCR) C. difficile Tox (PCR) COVID-19 PCR Salmonella (PCR) Blood Type Antibody Screen 05/11/20 05/11/20 05/11/20 16:51 17:30 18:20 WBC RBC Hgb Hct MCV MCH MCHC RDW Plt Count Neut % (Auto) Lymph % (Auto) Woodson % (Auto) Eos % (Auto) Baso % (Auto) Neut # (Auto) Lymph # (Auto) Woodson # (Auto) Eos # (Auto) Baso # (Auto) PT INR APTT Sodium Potassium Chloride Carbon Dioxide BUN Creatinine Estimated GFR BUN/Creatinine Ratio Glucose Lactate 1.1 Calcium Total Bilirubin AST ALT Alkaline Phosphatase Total Protein Albumin Globulin Albumin/Globulin Ratio Stl C. cayetanensis PCR Not detected Stool Rotavirus (PCR) Not detected Stool Adenovirus (PCR) Not detected Stool Astrovirus (PCR) Not detected Stool Cryptosporidium PCR Not detected Stl E.coli Shiga Tox PCR Not detected St Sh/Enteroin Ecoli PCR Not detected Stool E coli O157 PCR Not detected Stl Enterotoxigenic E PCR Not detected Stool EPEC (PCR) Not detected Stl E. histolytica PCR Not detected Stool Giardia Lamblia PCR Not detected Stool Sapovirus (PCR) Not detected Stl P. shigelloides PCR Not detected St Y.enterocolitica PCR Not detected Stool Vibrio (PCR) Not detected Stl Vibrio cholerae PCR Not detected Stl Enteroaggr Ecoli PCR Not detected Stl Norovirus GI/GII PCR Not detected Campylobacter (PCR) Not detected C. difficile Tox (PCR) Not detected COVID-19 PCR Salmonella (PCR) Not detected Blood Type O Positive Antibody Screen Negative 05/11/20 18:43 WBC RBC Hgb Hct MCV MCH MCHC RDW Plt Count Neut % (Auto) Lymph % (Auto) Woodson % (Auto) Eos % (Auto) Baso % (Auto) Neut # (Auto) Lymph # (Auto) Woodson # (Auto) Eos # (Auto) Baso # (Auto) PT INR APTT Sodium Potassium Chloride Carbon Dioxide BUN Creatinine Estimated GFR BUN/Creatinine Ratio Glucose Lactate Calcium Total Bilirubin AST ALT Alkaline Phosphatase Total Protein Albumin Globulin Albumin/Globulin Ratio Stl C. cayetanensis PCR Stool Rotavirus (PCR) Stool Adenovirus (PCR) Stool Astrovirus (PCR) Stool Cryptosporidium PCR Stl E.coli Shiga Tox PCR St Sh/Enteroin Ecoli PCR Stool E coli O157 PCR Stl Enterotoxigenic E PCR Stool EPEC (PCR) Stl E. histolytica PCR Stool Giardia Lamblia PCR Stool Sapovirus (PCR) Stl P. shigelloides PCR St Y.enterocolitica PCR Stool Vibrio (PCR) Stl Vibrio cholerae PCR Stl Enteroaggr Ecoli PCR Stl Norovirus GI/GII PCR Campylobacter (PCR) C. difficile Tox (PCR) COVID-19 PCR Negative Salmonella (PCR) Blood Type Antibody Screen Assessment & Plan Assessment & Plan narrative: This is a 54-year-old female patient who reports taking Aleve 1 day ago and developing symptomatic rectal bleeding. 1. Rectal bleeding, acute, present on admission, active. -the patient reports multiple episodes of bloody diarrhea becoming symptomatic with lightheadedness weakness and epigastric tenderness, denies abdominal cramping nausea vomiting. No hematemesis. -CT of the abdomen notes colonic diverticulosis without diverticulitis, no other acute intra-abdominal pathology identified. -patient had a hemoglobin of 11.1 and hematocrit of 32.9 on ER labs. -Dr. Narayanan has been contacted and agrees to consult with plans for colonoscopy. The patient is given Mag citrate and fleets enema for bowel prep. -the patient's clear liquid diet and advance NPO after midnight. -ordered lactated Ringer's 100 cc/hour. -the patient has had no further rectal bleedings will defer further labs until morning. 2. GERD, chronic, stable -patient takes pantoprazole on as needed basis at home and has been taking for few days. -patient received pantoprazole 40 mg in the emergency department will continue pantoprazole 40 mg IV twice daily. -patient is on clear liquid diet and NPO post midnight. VTE prophylaxis: SCDs, chemical prophylaxis is contraindicated IV fluid: Lactated Ringer's 100 cc per Diet: Clear liquid diet, NPO at midnight except meds Code status: Full code patient designates her daughter Jazmin to be her surrogate decision maker. The patient is admitted to the hospital with rectal bleeding requiring further evaluation and monitoring with plan for surgical intervention colonoscopy. The patient is admitted as observation with expected length of stay to be less than 2 midnights. COVID-19 COVID-19 status: Negative Result date/Date tested (Pos, Neg/Pending): 05/11/20 Scores GCS Glennie coma scale eye opening: Spontaneous Jessica coma scale verbal response: Orientated Jessica coma scale motor response: Obey commands Glennie coma scale total score: 15
[2020-05-12] MEDS: MAGNESIUM CITRATE 300 ML SOLUTION 150 ML PO (05:12)
[2020-05-12] MEDS: FLEETS ENEMA 1 EACH PR (06:16)
[2020-05-12 06:39] LABS: BUN Creatinine Ratio 21.7 (6-22); Blood Urea Nitrogen 15 mg/dL (7-17); Calcium 8.6 mg/dL (8.4-10.2); Carbon Dioxide 28 mmol/L (22-32); Chloride 111 mmol/L (98-107); Estimated Glomerular Filt Rate > 60.0 mL/min (>60); Glucose 96 mg/dL (70-100); HEMOLYSIS < 15 (0-50); Magnesium 2.4 mg/dL (1.6-2.3); Potassium 3.9 mmol/L (3.4-5.1); Sodium 140 mmol/L (137-145)
[2020-05-12 07:02] LABS: Add Manual Diff / Slide Review NO; Basophils Absolute Auto 0 /uL (0-100); Basophils Percent Auto 0.3 % (0-2); Eosinophils Absolute Auto 200 /uL (0-450); Eosinophils Percent Auto 2.4 % (2-4); Hematocrit 28.9 % (36-46); Hemoglobin 9.7 g/dL (12.0-16.0); Lymphocytes Absolute Auto 1200 /uL (1100-4500); Lymphocytes Percent Auto 17.9 % (25-40); Mean Corpuscular HGB Conc 33.7 % (30-36); Mean Corpuscular Hemoglobin 30.1 PG (26-34); Mean Corpuscular Volume 89.4 fL (80-100); Monocytes Absolute Auto 400 /uL (0-900); Monocytes Percent Auto 6.1 % (3-14); Neutrophils Absolute Auto 4900 /uL (1500-7000); Neutrophils Percent Auto 73.3 % (50-75); Platelet Count 175 X10^3/uL (150-400); Red Blood Cell Count 3.23 X10^6/uL (4.0-5.2); White Blood Cell Count 6.7 X10^3/uL (4.5-11.0)
[2020-05-12] MEDS: PANTOPRAZOLE 40 MG VIAL IV (08:26)
--- NOTE | 2020-05-12 10:28 | PC.NURSE ---
Addendum entered by Dillon Leal R.N. 05/12/20 14:46: IVF COMPLETE. PATIENT AND DTR CONFIRM UNDERSTANDING OF ALL DC HM INSTRUCTIONS. THEY WILL KEEP HER F/U APPT SCHEDULED FOR THE . PATIENT LEFT BY WC WITH THIS PROJECT MANAGEMENT SPECIALIST TO ESCORT WITH ALL BELONGINGS AND PAPERWORK. Addendum entered by Dillon Leal R.N. 05/12/20 13:43: DR. DIAZ IN WITH PATIENT W/ DISCUSSION TO DC PATIENT HOME. PATIENT REPORTS FEELING DEHYDRATED, MD INSTRUCTED TO RUN THE REST OF THE IV BAG IN OVER 1HR, APPROX 850 CC'S IN LITER BAG THAT CAME UP WITH PATIENT FROM RECOVERY. Addendum entered by Dillon Leal R.N. 05/12/20 10:50: PATIENT OFF OF UNIT FOR EGD AND COLONOSCOPY Original Note: PATIENT HAD 400CC'S LIQUID BROWNISH YELLOW CLEAR STOOL WITH BROWN AND RED FLAKES
[2020-05-12] MEDS: LACTATED RINGERS 1,000 ML 150 ML IV (11:29)
[2020-05-12] MEDS: MIDAZOLAM 5 MG/5 ML VIAL IV (11:55)
[2020-05-12] MEDS: fentaNYL 250 MCG/5 ML INJ IV (11:56)
--- NOTE | 2020-05-12 11:56 | PM.OP.ENDO ---
Operative Date/Time/Diagnoses Date of procedure: 05/12/20 Time of procedure: 11:56 Pre-op diagnosis: GI bleed Post-op diagnosis: same Procedure & Clinicians Study performed: Esophagoduodenoscopy Same procedure as scheduled: Yes Indications: 54-year-old woman history of peptic ulcer disease recently the using NSAIDs here with blood rectum Surgeon: Xander Narayanan Procedure Notes SCOAP/Timeout: Performed Procedure in detail: Patient placed in left lateral decubitus position. Time out was performed. Procedural sedation was administered with Versed and Fentanyl. A bite block was placed. the scope was inserted into the mouth and advanced through the esophagus and into the stomach. The pylorus was intubated and the duodenum was normal to the 3nd portion. The scope was retroflexed within the stomach and there was a small hiatal hernia. The stomach was notable for diffuse gastritis no active hemorrhage or discrete ulceration. Several random gastric biopsies were taken with forceps. The scope was withdrawn into the esophagus the Z line was seen at 40 cm from the incisions. There was no Tanner's there was mild esophagitis near the GE junction and random biopsies were taken. Stomach was desufflated and scope removed. Patient tolerated procedure well. Sedation minutes: 6 Findings: gastritis Specimen(s): other (Gastric, GE junction) Complications: none Impression: Gastritis Post-procedure Recommendations: Continue medication(s) (Protonix) Follow up: as needed Disposition: Acute Care
[2020-05-12] MEDS: LIDOCAINE 4% SOLN 50 ML 20 ML TOP (11:57)
--- NOTE | 2020-05-12 12:19 | CM.IDA ---
Discharge Planning/Care Management CM Discharge Assessment Start: 05/12/20 11:57 Freq: Status: Active Protocol: Document 05/12/20 11:57 ERICH (Rec: 05/12/20 12:19 ERICH [id number]) Discharge Planning Assessment Assigned Director Sales NATANAEL Young DPOA/Assigned Designee Name Nanda Ramsey, spouse Contact Information [phone] Advance Directives? No History Provided By Medical Record Household Members significant other Independent with ADL's Yes Is patient alert and oriented? Yes Barriers to Discharge No Comment Patient admitted observation w /rectal bleeding, GI Bleed/ gastritis confirmed by Dr Narayanan by EGD today. Attempted assessment and patient was off the floor for EGD/ Colonoscopy. According to chart review, patient is indp. and active at baseline, works, lives w/ spouse and is likely to return home w/close outpatient f/u upon medical clearance. [employer] team will follow closely and plan to assess for DC needs and concerns if they arise. Discharge Plan Home Transportation Arrangement Likely family Referrals Initiated None needed NATANAEL Zimmerman
--- NOTE | 2020-05-12 13:37 | PM.DS.1 ---
History of Present Illness History of Present Illness Chief complaint: states bleeding ulcer Narrative: Ms. Lucy Sims is a 54-year-old filipina female with past medical history significant for prior gastric ulcer, GERD, H pylori infection, irregular menstruation and headaches who presents to the ER with complaints of bloody diarrhea. The patient states that yesterday she took 2 Aleve at night for generalized aches and pains and feeling weak tired after long day at work. When the patient woke in the morning she had episode of dark red diarrhea stool. The patient proceeded to go to work and continue to have multiple episodes of bloody diarrhea and after 5 BMs became lightheaded and weak. She describes associated epigastric tenderness but denies normal pain or cramping. She has no reports of nausea vomiting and no hematemesis. Patient had H pylori infection 7 years ago that was treated with antibiotics and a previous gastric ulcer. She also reports history of GERD for which she takes of pantoprazole on an irregular basis. She has never had a colonoscopy. She reports no recent complaints of illness, fevers or chills. She has no complaints of chest pain or palpitations, shortness of breath cough or wheezing. She has epigastric tenderness but denies abdominal pain and has no cramping or flank pain. She denies urinary symptoms of urgency frequency or hematuria. On arrival to the ER the patient has a temperature 98.6?, heart rate of 100, blood pressure 123/83, respirations of 18 saturating 99% on room air. A CT the abdomen and pelvis finds no acute abnormalities, nodes scattered colonic diverticulosis without acute diverticulitis and normal appendix. On laboratory analysis the patient has a normal white count at 6.0 with no shift, hemoglobin of 11.1, hematocrit of 32.9 and platelets of 220. She has PT of 0.5, INR 1.1 and PTT of 35. Electrolytes are all within normal limits and has a BUN 24 and a creatinine 0.74. Her nonfasting glucose is 97. She has a total bilirubin of 0.6, AST 48, ALT of 16 and alkaline phosphatase of 55. Her albumin is 4.1. GI PCR panel is negative and COVID screening is negative. Dr. Herrera is contacted through the emergency department and agrees to consult. The patient is admitted to the medicine service for GI bleeding. Discharge Providers Provider Date of admission: 05/11/20 20:23 Discharge Date: 05/12/20 Consults: 05/11/20 23:35 Consult to General Surgery Routine Comment: Consulting Provider: Xander Herrera Reason for consultation: GI Bleed Has provider been notified: Yes 05/11/20 23:38 Consult to Dietitian, Adult Routine Comment: Reason For Exam: GI bleed history of gastric ulcer Discharge provider: Forrest Saucedo MD Summary Hospital Course Discharge Diagnosis: 1. Acute blood loss anemia secondary to upper GI bleed 2. Acute gastritis 3. Mild esophagitis 4. GERD EGD: Diffuse gastritis without active hemorrhage, mild esophagitis near GE junction Hospital Course: Patient presented with rectal bleed dark red stool. Hemoglobin 11.1 on admission and dropped to 9.7. She did not get transfused. She has been taking NSAIDs. Dr. Herrera performed EGD which showed diffuse gastritis without active bleeding, without ulcer, and mild esophagitis without appearance of Tanner's. He got multiple biopsies. Patient is felt to have likely upper source of GI bleed. She will stop NSAIDs and take her Protonix every day. Follow-up with Dr. Herrera to review biopsy reports. Also she will schedule screening colonoscopy. Status at Discharge Cognitive/behavioral status at discharge: oriented Functional status at discharge: independent ambulation Overall status at discharge: patient is progressing back to baseline Time Spent with Patient Time spent: Less than 30 minutes Exam Vital Signs (past 8 hours): - 05/12/20 08:15 05/12/20 08:42 05/12/20 11:16 Temperature 97.9 F 97.7 F Pulse Rate 88 81 Respiratory Rate 16 12 Blood Pressure 117/74 129/87 Pulse Oximetry 100 98 98 05/12/20 12:00 05/12/20 12:05 05/12/20 12:10 Temperature 98.4 F Pulse Rate 77 79 76 Respiratory Rate 16 12 16 Blood Pressure 102/69 102/76 100/69 Pulse Oximetry 97 99 99 05/12/20 12:15 05/12/20 12:21 05/12/20 12:37 Temperature 97.4 F L 97.4 F L Pulse Rate 83 80 82 Respiratory Rate 14 12 16 Blood Pressure 114/74 109/74 121/82 Pulse Oximetry 98 99 100 Oxygen Delivery Method Room Air Oxygen Flow Rate 0 Objective Labs Result Diagrams: 05/12/20 06:06 05/12/20 06:06 Labs: Laboratory Results - last 24 hr 05/11/20 05/11/20 05/11/20 16:40 16:40 16:40 WBC 6.0 RBC 3.72 L Hgb 11.1 L Hct 32.9 L MCV 88.3 MCH 29.9 MCHC 33.9 RDW 13.9 Plt Count 220 Neut % (Auto) 60.5 Lymph % (Auto) 29.9 [place] % (Auto) 6.1 Eos % (Auto) 2.7 Baso % (Auto) 0.8 Neut # (Auto) 3600 Lymph # (Auto) 1800 [place] # (Auto) 400 Eos # (Auto) 200 Baso # (Auto) 0 PT 12.5 INR 1.1 APTT 35 Sodium 139 Potassium 4.1 Chloride 106 Carbon Dioxide 27 BUN 24 H Creatinine 0.74 Estimated GFR > 60.0 BUN/Creatinine Ratio 32.4 H Glucose 97 Lactate Calcium 9.2 Magnesium Total Bilirubin 0.6 AST 48 H ALT 16 Alkaline Phosphatase 51 Total Protein 6.7 Albumin 4.1 Globulin 2.6 Albumin/Globulin Ratio 1.6 Stl C. cayetanensis PCR Stool Rotavirus (PCR) Stool Adenovirus (PCR) Stool Astrovirus (PCR) Stool Cryptosporidium PCR Stl E.coli Shiga Tox PCR St Sh/Enteroin Ecoli PCR Stool E coli O157 PCR Stl Enterotoxigenic E PCR Stool EPEC (PCR) Stl E. histolytica PCR Stool Giardia Lamblia PCR Stool Sapovirus (PCR) Stl P. shigelloides PCR St Y.enterocolitica PCR Stool Vibrio (PCR) Stl Vibrio cholerae PCR Stl Enteroaggr Ecoli PCR Stl Norovirus GI/GII PCR Campylobacter (PCR) C. difficile Tox (PCR) COVID-19 PCR Salmonella (PCR) Blood Type Antibody Screen 05/11/20 05/11/20 05/11/20 16:51 17:30 18:20 WBC RBC Hgb Hct MCV MCH MCHC RDW Plt Count Neut % (Auto) Lymph % (Auto) [place] % (Auto) Eos % (Auto) Baso % (Auto) Neut # (Auto) Lymph # (Auto) [place] # (Auto) Eos # (Auto) Baso # (Auto) PT INR APTT Sodium Potassium Chloride Carbon Dioxide BUN Creatinine Estimated GFR BUN/Creatinine Ratio Glucose Lactate 1.1 Calcium Magnesium Total Bilirubin AST ALT Alkaline Phosphatase Total Protein Albumin Globulin Albumin/Globulin Ratio Stl C. cayetanensis PCR Not detected Stool Rotavirus (PCR) Not detected Stool Adenovirus (PCR) Not detected Stool Astrovirus (PCR) Not detected Stool Cryptosporidium PCR Not detected Stl E.coli Shiga Tox PCR Not detected St Sh/Enteroin Ecoli PCR Not detected Stool E coli O157 PCR Not detected Stl Enterotoxigenic E PCR Not detected Stool EPEC (PCR) Not detected Stl E. histolytica PCR Not detected Stool Giardia Lamblia PCR Not detected Stool Sapovirus (PCR) Not detected Stl P. shigelloides PCR Not detected St Y.enterocolitica PCR Not detected Stool Vibrio (PCR) Not detected Stl Vibrio cholerae PCR Not detected Stl Enteroaggr Ecoli PCR Not detected Stl Norovirus GI/GII PCR Not detected Campylobacter (PCR) Not detected C. difficile Tox (PCR) Not detected COVID-19 PCR Salmonella (PCR) Not detected Blood Type O Positive Antibody Screen Negative 05/11/20 05/12/20 05/12/20 18:43 06:06 06:06 WBC 6.7 RBC 3.23 L Hgb 9.7 L Hct 28.9 L MCV 89.4 MCH 30.1 MCHC 33.7 RDW 14.0 Plt Count 175 Neut % (Auto) 73.3 Lymph % (Auto) 17.9 L [place] % (Auto) 6.1 Eos % (Auto) 2.4 Baso % (Auto) 0.3 Neut # (Auto) 4900 Lymph # (Auto) 1200 [place] # (Auto) 400 Eos # (Auto) 200 Baso # (Auto) 0 PT INR APTT Sodium Potassium Chloride Carbon Dioxide BUN Creatinine Estimated GFR BUN/Creatinine Ratio Glucose Lactate Calcium Magnesium 2.4 H Total Bilirubin AST ALT Alkaline Phosphatase Total Protein Albumin Globulin Albumin/Globulin Ratio Stl C. cayetanensis PCR Stool Rotavirus (PCR) Stool Adenovirus (PCR) Stool Astrovirus (PCR) Stool Cryptosporidium PCR Stl E.coli Shiga Tox PCR St Sh/Enteroin Ecoli PCR Stool E coli O157 PCR Stl Enterotoxigenic E PCR Stool EPEC (PCR) Stl E. histolytica PCR Stool Giardia Lamblia PCR Stool Sapovirus (PCR) Stl P. shigelloides PCR St Y.enterocolitica PCR Stool Vibrio (PCR) Stl Vibrio cholerae PCR Stl Enteroaggr Ecoli PCR Stl Norovirus GI/GII PCR Campylobacter (PCR) C. difficile Tox (PCR) COVID-19 PCR Negative Salmonella (PCR) Blood Type Antibody Screen 05/12/20 06:06 WBC RBC Hgb Hct MCV MCH MCHC RDW Plt Count Neut % (Auto) Lymph % (Auto) [place] % (Auto) Eos % (Auto) Baso % (Auto) Neut # (Auto) Lymph # (Auto) [place] # (Auto) Eos # (Auto) Baso # (Auto) PT INR APTT Sodium 140 Potassium 3.9 Chloride 111 H Carbon Dioxide 28 BUN 15 Creatinine 0.69 Estimated GFR > 60.0 BUN/Creatinine Ratio 21.7 Glucose 96 Lactate Calcium 8.6 Magnesium Total Bilirubin AST ALT Alkaline Phosphatase Total Protein Albumin Globulin Albumin/Globulin Ratio Stl C. cayetanensis PCR Stool Rotavirus (PCR) Stool Adenovirus (PCR) Stool Astrovirus (PCR) Stool Cryptosporidium PCR Stl E.coli Shiga Tox PCR St Sh/Enteroin Ecoli PCR Stool E coli O157 PCR Stl Enterotoxigenic E PCR Stool EPEC (PCR) Stl E. histolytica PCR Stool Giardia Lamblia PCR Stool Sapovirus (PCR) Stl P. shigelloides PCR St Y.enterocolitica PCR Stool Vibrio (PCR) Stl Vibrio cholerae PCR Stl Enteroaggr Ecoli PCR Stl Norovirus GI/GII PCR Campylobacter (PCR) C. difficile Tox (PCR) COVID-19 PCR Salmonella (PCR) Blood Type Antibody Screen Discharge Plan Discharge Plan Patient Disposition: Home Provider Discharge Comment: EGD showed gastritis. Do not take any aspirin or aspirin type pain relievers. Tylenol is okay. Follow-up with Dr. Herrera to review biopsy results. Schedule screening colonoscopy. Discharge orders & Medications Prescriptions: Continued pantoprazole 20 mg Tablet,Delayed Release (Dr/Ec) 20 mg PO DAILY RF: 0 Follow up/Referrals: Xander Herrera MD [Physician] - 05/25/20 11:00 am (appt:05/25 @ 11:[address] herrera arrive 15 minutes prior to your scheduled appointment time) Diet/Activity/Treatments Diet: Diet as Tolerated Visit Report/Discharge Packet Visit Report Forms: Patient Portal/API, Stroke Signs & Symptoms Discharge Data Attending Provider: Adalberto Fried Admit Date/Time: 05/11/20 20:23
[2020-05-14 12:13] LABS: H. Pylori Antigen Stool Negative (Negative)
--- NOTE | 2020-05-16 18:04 | PC.NURSE ---
Late Entry; NS infusion initiated 05/11 at 21:51, completed 05/12 at 00:15. New order for LR obtained.
== END 2020-05-12 14:40 | disposition home or self-care (01) ==
LOC: ED 19:48 → AC 20:23
PROVIDERS: Emergency Medicine; Surgery; Admitting Provider Nurse Practitioner Adult Health; Emergency Provider Nurse Practitioner Family; Referring Provider Nurse Practitioner Family; Visit Provider Nurse Practitioner Adult Health
PROC: 0DJ08ZZ Inspection of Upper Intestinal Tract, Via Natural or Artificial Opening Endoscopic (ICD-10-PCS; CPT 43235; principal; 2020-05-12 11:30)
DX: K29.00 Acute gastritis without bleeding (principal); K62.5 Hemorrhage of anus and rectum; K21.9 Gastro-esophageal reflux disease without esophagitis; D62 Acute posthemorrhagic anemia; K20.90 Esophagitis, unspecified without bleeding; Z11.59 Encounter for screening for other viral diseases; Z72.0 Tobacco use
CPT/HCPCS: 43239; 36415; 74177; 80048; 80053; 81003; 81025; 83605; 83735; 85025; 85610; 85730; 86850; 86900; 86901; 87338; 87507; 87635; 93005; 94762; 96361; 96374; 96376; 99218; 99284; G0378; C9113; J2250; J3010; Q9967

== ENCOUNTER → 2021-07-31 17:15 | Outpatient (CLI) | payer OTHER, SELFPAY ==
[2020-05-12 13:39] VITALS: BMI 27.7
[2021-07-31 17:52] LABS: COVID19 -Nasal RAPID Negative (Negative)
== END ==
PROVIDERS: Referring Provider Student in an Organized Health Care Education/Training Program; Visit Provider Student in an Organized Health Care Education/Training Program
DX: Z20.822 Contact with and (suspected) exposure to COVID-19 (principal)
CPT/HCPCS: 87635